=== PATIENT | female | born 1980 | race Asian ===

== ENCOUNTER 2024-06-10 16:55 | Observation (INO) | payer SELFPAY ==
[~2024-06-10] VITALS: Ht 175.3 cm; Wt 88.5 kg
[~2024-06-10 16:55] MED LIST: MEDROL4 M2 PO; ONDANSETRON ODT4 MG SL; ORPHENADRINE C100 MG PO
[2024-06-10 19:46] VITALS: TEMP 98.2
[2024-06-10] MEDS: DEXAMETHASONE SOD PHOS 10 MG/1 ML VIAL IM ONE (20:12)
[2024-06-10] MEDS: ORPHENADRINE CITRATE 30 MG/ML VIAL IM ONE (20:16)
[2024-06-10 20:21] LABS: BASOPHILS # (AUTO) 0.1 (0.0-0.1); BASOPHILS % 0.5 % (0.0-1.0); EOSINOPHILS # (AUTO) 0.1 (0.0-0.4); HEMATOCRIT 43.3 % (34.2-44.1); HEMOGLOBIN 14.1 g/dL (12.0-16.0); LYMPHOCYTES # (AUTO) 3.2 (1.0-3.2); LYMPHOCYTES % 30.3 % (18.0-39.1); MEAN CORPUSCULAR HEMOGLOBIN 29.3 pg (28-32); MEAN CORPUSCULAR HGB CONC 32.6 g/dL (31-35); MONOCYTES # (AUTO) 0.6 (0.2-0.8); MONOCYTES % 5.5 % (4.4-11.3); NEUTROPHILS # (AUTO) 6.7 (2.1-6.9); NEUTROPHILS % 62.4 % (38.7-80.0); PLATELET COUNT 198 x10e3/uL (140-360); RED BLOOD COUNT 4.81 x10e6/uL (3.6-5.1); RED CELL DISTRIBUTION WIDTH 12.4 % (11.7-14.4); WHITE BLOOD COUNT 10.68 x10e3/uL (4.8-10.8)
[2024-06-10 20:36] LABS: ANION GAP 10.4 mmol/L (8-16); CREATININE, SERUM 0.49 mg/dL (0.57-1.11)
[2024-06-10 20:39] LABS: CALCIUM 5.5 mg/dL (8.4-10.2); POTASSIUM 2.4 mmol/L (3.5-5.1)
[2024-06-10 21:01] LABS: CLARITY,URINE CLEAR (CLEAR); COLOR,URINE YELLOW (YELLOW); PH,URINE 6 (5 - 7)
[2024-06-10 21:02] LABS: BILIRUBIN,URINE NEGATIVE (NEGATIVE); GLUCOSE, URINE NEGATIVE (NEGATIVE); KETONES,URINE NEGATIVE (NEGATIVE); LEUKOCYTE ESTERASE ,URINE TRACE (NEGATIVE); NITRITE,URINE NEGATIVE (NEGATIVE); PROTEIN,URINE DIPSTICK NEGATIVE (NEGATIVE); URINE UROBILINOGEN 0.2 mg/dL (0.2 - 1)
[2024-06-10 21:06] LABS: ALBUMIN 2.5 g/dL (3.5-5.0); BILIRUBIN,DIRECT 0.2 mg/dL (0.0-0.5); BILIRUBIN,TOTAL 0.6 mg/dL (0.2-1.2); MAGNESIUM 1.2 MG/DL (1.3-2.1); TOTAL PROTEIN 4.9 g/dL (6.5-8.1)
[2024-06-10 21:11] LABS: BACTERIA,URINE FEW /HPF; EPITHELIAL CELLS,URINE MODERATE /LPF; TRANSITIONAL EPI CELLS,URINE MODERATE
[2024-06-10] MEDS: DEXTROSE 50% SYRINGE 50 ML IV STA (21:13)
[2024-06-10] MEDS ORDERED: SODIUM CHLORIDE FLUSH 10 ML SYR INJ PRN (22:00)
[2024-06-10] MEDS: MAGNESIUM SULFATE 2GM/50ML 50 ML IV ONE (22:32)
[2024-06-10] MEDS ORDERED: KETOROLAC TROMETHAMINE 30 MG/ML VIAL IV PRN (23:30)
[2024-06-10] MEDS ORDERED: CALCIUM GLUCONATE 10% INJ 9.3 MEQ in SODIUM CHLORIDE 0.9% 100 ML IV ONE (23:30)
[2024-06-10] MEDS ORDERED: ACETAMINOPHEN 325 MG TAB PO PRN (23:30)
[2024-06-10] MEDS ORDERED: HYDRALAZINE HCL 20 MG/ML VIAL IV PRN (23:30)
[2024-06-10] MEDS: POTASSIUM CHLORIDE 10MEQ EA PO ONE (23:54)
[2024-06-11] VITALS (10 sets, daily range): BP systolic 125–148; BP diastolic 66–95; PULSE 68–84; RESP 16–20; TEMP 97.9–98.4; O2SAT 97–100
[2024-06-11] MEDS: ONDANSETRON HCL INJ 2MG/ML 2ML 2 MG/ML VIAL IV PRN (02:19)
[2024-06-11] MEDS: POTASSIUM CHLORIDE 10MEQ EA PO ONE (02:19)
[2024-06-11] MEDS ORDERED: CALCIUM GLUC 1 G/50 ML NACL 100 ML IV ONE (02:22)
[2024-06-11] MEDS: CALCIUM GLUC 1 G/50 ML NACL 50 ML IV SCH (03:30)
[2024-06-11] MEDS ORDERED: CALCIUM GLUC 1 G/50 ML NACL 50 ML IV SCH (03:45)
[2024-06-11] MEDS ORDERED: SODIUM CHLORIDE 0.9% 250ML 250 ML ONE (03:51)
[2024-06-11 06:54] LABS: BASOPHILS % 0.2 % (0.0-1.0); HEMATOCRIT 41.9 % (34.2-44.1); HEMOGLOBIN 14.1 g/dL (12.0-16.0); LYMPHOCYTES # (AUTO) 1.1 (1.0-3.2); LYMPHOCYTES % 9.7 % (18.0-39.1); MEAN CORPUSCULAR HEMOGLOBIN 29.6 pg (28-32); MEAN CORPUSCULAR HGB CONC 33.7 g/dL (31-35); MEAN CORPUSCULAR VOLUME 87.8 fL (81-99); MONOCYTES # (AUTO) 0.3 (0.2-0.8); MONOCYTES % 2.8 % (4.4-11.3); NEUTROPHILS # (AUTO) 10.1 (2.1-6.9); PLATELET COUNT 216 x10e3/uL (140-360); RED BLOOD COUNT 4.77 x10e6/uL (3.6-5.1); RED CELL DISTRIBUTION WIDTH 12.1 % (11.7-14.4)
[2024-06-11 07:11] LABS: ALBUMIN 3.6 g/dL (3.5-5.0); ANION GAP 12.8 mmol/L (8-16); CALCIUM 9.9 mg/dL (8.4-10.2); CREATININE, SERUM 0.85 mg/dL (0.57-1.11); MAGNESIUM 2.1 MG/DL (1.3-2.1); POTASSIUM 4.8 mmol/L (3.5-5.1); TOTAL PROTEIN 7.1 g/dL (6.5-8.1)
[2024-06-11] MEDS: SENNOSIDES 8.6 MG TAB PO SCH (08:59)
[2024-06-11] MEDS: DOCUSATE SODIUM 100 MG CAP PO SCH (08:59)
[2024-06-11] MEDS ORDERED: IBUPROFEN400 MG PO (09:20)
[2024-06-11] MEDS: PREDNISONE 20 MG TAB PO ONE (12:18)
[2024-06-11] MEDS ORDERED: PREDNISONE10 MG PO (15:57)
[2024-06-11] MEDS ORDERED: PANTOPRAZOLE SO40 MG PO (15:57)
[2024-06-11] MEDS ORDERED: ENOXAPARIN SOD INJ 40 MG/0.4 ML SYR SC SCH (17:00)
== END 2024-06-11 17:45 | disposition home or self-care (01) ==
LOC: ER 19:36 → ERHOLD 21:49 → MED/SURG 06-11 01:05
PROVIDERS: ADMIT Internal Medicine; ATTEND Internal Medicine
DX: M25.511 Pain in right shoulder (principal); E87.6 Hypokalemia; E83.51 Hypocalcemia; E83.42 Hypomagnesemia; M79.601 Pain in right arm; M54.50 Low back pain, unspecified; G89.29 Other chronic pain; M13.0 Polyarthritis, unspecified; Z11.52 Encounter for screening for COVID-19; Z79.52 Long term (current) use of systemic steroids
CPT/HCPCS: 36415 ×2; 71045; 80048; 80053; 80076; 81001; 82948; 83036; 83735 ×2; 85025 ×2; 94799; 99284; G0378 ×2; J1100; J2360; J2405; J2470; J3475; J7050; J7512; J7799; U0002; J0612

== ENCOUNTER 2025-06-15 23:11 | Emergency (ER) | payer BC ==
[~2025-06-15] VITALS: Ht 175.3 cm; Wt 89.8 kg
[~2025-06-15 23:11] MED LIST changes: +IBUPROFEN400 MG PO; +PANTOPRAZOLE SO40 MG PO; +PREDNISONE10 MG PO
[2025-06-15 23:31] LABS: BASOPHILS % 0.3 % (0.0-1.0); EOSINOPHILS % 1.5 % (0.0-6.0); LYMPHOCYTES % 13.6 % (18.0-39.1); MONOCYTES % 6.6 % (4.4-11.3); NEUTROPHILS % 77.7 % (38.7-80.0); RED CELL DISTRIBUTION WIDTH 13.0 % (11.7-14.4)
[2025-06-15] MEDS: ONDANSETRON HCL INJ 2MG/ML 2ML 2 MG/ML VIAL IV STA (23:38)
[2025-06-15] MEDS: SODIUM CHLORIDE 0.9% 1000ML 1,000 ML IV ONE (23:39)
[2025-06-15] MEDS: Morphine 4mg INJECTION 4 MG/ML INJ IV ONE (23:39)
[2025-06-16 00:09] LABS: EST GLOMERULAR FILTRATION RATE 87.0 ML/MIN (>=60)
[2025-06-16 00:32] LABS: LEUKOCYTE ESTERASE ,URINE NEGATIVE (NEGATIVE); PROTEIN,URINE DIPSTICK NEGATIVE (NEGATIVE); URINE UROBILINOGEN 0.2 mg/dL (0.2 - 1)
[2025-06-16 00:34] LABS: EPITHELIAL CELLS,URINE FEW /LPF; WBC,URINE (MAN) 0-5 /HPF (0-5)
[2025-06-16] MEDS: ACETAMINOPHEN 325 MG TAB PO ONE (00:51)
[2025-06-16] MEDS ORDERED: DICYCLOMINE HCL20 MG PO (01:03)
[2025-06-16 01:08] VITALS: PULSE 86; RESP 18; TEMP 98.6; O2SAT 100
[2025-06-16] MEDS ORDERED: IOPAMIDOL 370 MG/ML 100 ML INFUS..BTL INJ ONE (05:14)
== END 2025-06-16 01:05 | disposition home or self-care (01) ==
LOC: ER 23:17
DX: R10.11 Right upper quadrant pain (principal); K44.9 Diaphragmatic hernia without obstruction or gangrene; R94.31 Abnormal electrocardiogram [ECG] [EKG]
CPT/HCPCS: 36415; 74177; 80053; 81001; 83690; 84484; 84702; 85025; 93005; 99284; J2270; J2405; J2470; J7030; Q9967